=== PATIENT | female | born 1950 | race African-American/Black ===

== ENCOUNTER 2018-02-14 07:34 | Emergency (ER) | payer MEDICARE, OTHER ==
[2018-02-14 07:52] VITALS: TEMP 97.7; BMI 35.9
--- NOTE | 2018-02-14 08:12 | PDOC ---
History of Present Illness - General Chief Complaint: Cold Symptoms Stated Complaint: COUGH - History of Present Illness Initial Comments: The patient is a 67F who presents for evaluation for 1w of intermittently productive cough w/ clear sputum. She denies ever having a cough for this duration before. She has not tried taking anything for her symptoms. She denies associated fevers/chills, HERRERA, N/V/C/D, dysuria, hematuria, blood in her stool, or changes in sensation. 02/14/18 08:16 Past History - Past Medical History Allergies/Adverse Reactions: Allergies Allergy/AdvReac Type Severity Reaction Status Date / Time oxycodone HCl [From Percocet] Allergy Vomiting Verified 02/14/18 07:40 Home Medications: Ambulatory Orders Carvedilol Phosphate [Coreg Cr] 0 mg PO BID 06/14/13 Guaifenesin [Robitussin -] 200 mg PO Q4H #420 ml 02/14/18 Losartan Potassium 25 mg PO DAILY 02/14/18 Omeprazole 20 mg PO DAILY 02/14/18 COPD: No GI Disorders: Yes (GERD) HTN: Yes - Immunization History Immunization Up to Date: Yes - Suicide/Smoking/Psychosocial Hx Smoking Status: No Smoking History: Never smoked Number of Cigarettes Smoked Daily: 0 Hx Alcohol Use: No Drug/Substance Use Hx: No Review of Systems - Review of Systems Able to Perform ROS?: Yes Comments:: GENERAL/CONSTITUTIONAL: No fever or chills. No weakness HEAD, EYES, EARS, NOSE AND THROAT: No change in vision. No ear pain or discharge. No sore throat CARDIOVASCULAR: No chest pain or shortness of breath RESPIRATORY: Denies hemoptysis GASTROINTESTINAL: No nausea, vomiting, diarrhea or constipation GENITOURINARY: No dysuria, frequency, or change in urination MUSCULOSKELETAL: No joint or muscle swelling or pain. No neck or back pain SKIN: No rash NEUROLOGIC: No headache, vertigo, loss of consciousness, or change in strength/ sensation ENDOCRINE: No increased thirst. No abnormal weight change HEMATOLOGIC/LYMPHATIC: No anemia, easy bleeding, or history of blood clots ALLERGIC/IMMUNOLOGIC: No hives or skin allergy 02/14/18 08:09 *Physical Exam - Vital Signs Last Vital Signs Temp Pulse Resp BP Pulse Ox 97.7 F 67 18 149/57 L 100 02/14/18 07:40 02/14/18 07:40 02/14/18 07:40 02/14/18 07:40 02/14/18 07:40 - Physical Exam Comments: GENERAL: Awake, alert, and fully oriented, in no acute distress HEAD: No signs of trauma, normocephalic, atraumatic EYES: PERRLA, EOMI, sclera anicteric, conjunctiva clear ENT: Hearing grossly normal, nares patent, oropharynx clear without exudates. Moist mucosa LUNGS: No distress, speaks full sentences, clear to auscultation bilaterally HEART: Regular rate and rhythm, normal S1 and S2, no murmurs appreciated, peripheral pulses normal and equal bilaterally ABDOMEN: Soft, nontender, normoactive bowel sounds. No guarding, no rebound. No masses EXTREMITIES : Normal inspection, Normal range of motion, no edema. No clubbing or cyanosis NEUROLOGICAL: Cranial nerves II through XII grossly intact. Normal speech, normal gait, no focal sensorimotor deficits SKIN: Warm, Dry, normal turgor, no rashes or lesions noted 02/14/18 08:09 Moderate Sedation - Procedure Monitoring Vital Signs: Procedure Monitoring Vital Signs Temperature 97.7 F 02/14/18 07:40 Pulse Rate 67 02/14/18 07:40 Respiratory Rate 18 02/14/18 07:40 Blood Pressure 149/57 L 02/14/18 07:40 O2 Sat by Pulse Oximetry (%) 100 02/14/18 07:40 Medical Decision Making - Medical Decision Making The patient is a 67F w/ a history of HTN who presents for evaluation of 1w of cough w/ clear sputum w/o fevers/chill/myalgias. ED Course CXR to r/o PNA 02/14/18 08:10 CXR w/o evidence of PNA 02/14/18 10:25 Rx for Robitussen Plan for D/C w/ PCP f/u Discussed x-ray results and need for PCP f/u and eval Plan discussed with patient who is in agreement and verbalized understanding Return precautions and discharge instructions given Dispo: Home 02/14/18 13:43 *DC/Admit/Observation/Transfer Diagnosis at time of Disposition: Cough - Discharge Dispostion Disposition: HOME Condition at time of disposition: Stable Decision to Admit order: No - Prescriptions Prescriptions: Guaifenesin [Robitussin -] 200 mg PO Q4H #420 ml - Referrals Referrals: Bishop Fregoso MD [Primary Care Provider] - - Patient Instructions Printed Discharge Instructions: DI for Viral Upper Respiratory Infection -- Adult Additional Instructions: You were seen in the Emergency Department today for cough. Please review the handout provided at discharge. You X-ray was significant for some ill-defined densities in the right upper lobe of your lung. Follow up with your primary care provider regarding these findings. You may need a CT scan to further evaluate these. A prescription was sent to the pharmacy that you specified. Take as directed. Return to the Emergency Department if you develop fevers/ chills, vomiting, diarrhea, worsening symptoms, or new/concerning symptoms. - Post Discharge Activity
--- NOTE | 2018-02-14 09:07 | PDOC ---
Attending Attestation - Resident Resident Name: Sea Escalera - ED Attending Attestation I have performed the following: I have examined & evaluated the patient, The case was reviewed & discussed with the resident, I agree w/resident's findings & plan, Exceptions are as noted - HPI HPI: 02/14/18 08:53 67y F hx of htn, presents 1 week of intermmitten cough productive of whitish sputum. Pt endorses some subjective fever on saturday, but has since rsolved, pt also noted some intermittent nasal congestion. denies any myalgias, cp, sob, MERRILL. has not yet taken any medications for her symptoms. no recent travel, sick contacts, leg swelling, hemoptysis, cp. oropharynx clear lungs clear no leg edema, neg homans sign ddx: viral syndrome gibson lck ekg to screen for acs gibson ck cxr to r/o pna - Physicial Exam PE: 02/14/18 10:33 see ab ve - Medical Decision Making 02/14/18 10:33 EKG was sinus bradycardia, the patient's chest x-ray reveals several ill- defined masses in the right upper lung, inconsistent with pneumonia but we'll have the patient evaluated this as an outpatient by her PMD with further imaging. Was discussed with the patient. return precautions were discussed Heart Score/ECG Review - ECG Impressions Comment:: 02/14/18 10:33 Twelve-lead EKG was performed and reviewed by me. There is normal sinus rhythm with a rate of [address] depressions or elevations Impression sinus bradycardia
[2018-02-14 11:27] VITALS: BP 148/85; PULSE 64
--- NOTE | 2018-02-14 15:55 | EKG ---
Test Reason : Blood Pressure : / mmHG Vent. Rate : 055 BPM Atrial Rate : 055 BPM P-R Int : 192 ms QRS Dur : 100 ms QT Int : 434 ms P-R-T Axes : 052 040 046 degrees QTc Int : 415 ms SINUS BRADYCARDIA OTHERWISE NORMAL ECG WHEN COMPARED WITH ECG OF 28-DEC-2008 11:03, NO SIGNIFICANT CHANGE WAS FOUND Confirmed by KENDALL ALSTON MD ([id number]) on 02/14/2018 3:54:29 PM Referred By: Confirmed By:KENDALL ALSTON MD
== END 2018-02-14 11:27 | disposition home or self-care (01) ==
LOC: JER 07:34
DX: R05 Cough (principal)
CPT/HCPCS: 71046-TC-FY; 93005; 93010; 99282-25

== ENCOUNTER 2018-07-18 07:37 | Emergency (ER) | payer MEDICARE, OTHER ==
[2018-07-18 07:42] VITALS: BP 150/62; PULSE 62; TEMP 97.4; BMI 34.7
--- NOTE | 2018-07-18 08:01 | PDOC ---
History of Present Illness - General Chief Complaint: Ear Problem Stated Complaint: LEFT EAR PAIN Time Seen by Provider: 07/18/18 07:50 History Source: Patient Exam Limitations: No Limitations - History of Present Illness Initial Comments: 07/18/18 07:57 67-year-old female presents to ED with complaints of something stuck in her left ear after cleaning with a Q-tip. Patient denies pain dizziness or headache presently. Timing/Duration: 1 hour Severity: mild Associated Symptoms: reports: denies symptoms Past History - Travel Traveled outside of the country in the last 30 days: No - Past Medical History Allergies/Adverse Reactions: Allergies Allergy/AdvReac Type Severity Reaction Status Date / Time oxycodone HCl [From Percocet] Allergy Vomiting Verified 07/18/18 07:42 Home Medications: Ambulatory Orders Carvedilol Phosphate [Coreg Cr] 0 mg PO BID 06/14/13 Guaifenesin [Robitussin -] 200 mg PO Q4H #420 ml 02/14/18 Losartan Potassium 25 mg PO DAILY 02/14/18 Omeprazole 20 mg PO DAILY 02/14/18 COPD: No GI Disorders: Yes (GERD) HTN: Yes - Immunization History Immunization Up to Date: Yes - Suicide/Smoking/Psychosocial Hx Smoking Status: No Smoking History: Never smoked Number of Cigarettes Smoked Daily: 0 Information on smoking cessation initiated: No Hx Alcohol Use: No Drug/Substance Use Hx: No Patient Lives Alone: No Lives with/in: spouse/SO Review of Systems - Review of Systems Able to Perform ROS?: Yes Constitutional: No: Symptoms Reported HEENTM: Yes: Other (FB in ear) Integumentary: No: Symptoms Reported Neurological: No: Symptoms reported *Physical Exam - Vital Signs Last Vital Signs Temp Pulse Resp BP Pulse Ox 97.4 F L 62 17 150/62 99 07/18/18 07:39 07/18/18 07:39 07/18/18 07:39 07/18/18 07:39 07/18/18 07:39 - Physical Exam General Appearance: Yes: Nourished, Appropriately Dressed. No: Apparent Distress HEENT: positive: Other (noted white fibrous object occluding left ear canal) Integumentary: positive: Normal Color, Warm, Moist Neurologic: positive: Motor Strength 5/5 (ambulatory) Medical Decision Making - Medical Decision Making 07/18/18 07:59 Chief complaint: Something is stuck in my left ear after cleaning with a Q-tip Exam: Patient with noted white fibrous matter occluding left ear canal Plan: Utilizing alligator forceps I was able to remove foreign body without difficulty. It appears to be the end of the Q-tip. TM intact /patient has no complaints/ will discharge *DC/Admit/Observation/Transfer Diagnosis at time of Disposition: Foreign body in left ear - Discharge Dispostion Disposition: HOME Condition at time of disposition: Improved - Referrals Referrals: Bishop Fregoso MD [Primary Care Provider] - - Patient Instructions Printed Discharge Instructions: DI for Removal of Foreign Body From Ear Additional Instructions: Do not place anything in your ear which may get stuck - Post Discharge Activity
== END 2018-07-18 08:21 | disposition home or self-care (01) ==
LOC: JER 07:37
PROC: 09C47ZZ Extirpation of Matter from Left External Auditory Canal, Via Natural or Artificial Opening (ICD-10-PCS; principal; 2018-07-18)
DX: T16.2XXA Foreign body in left ear, initial encounter (principal); X58.XXXA Exposure to other specified factors, initial encounter; Y93.E8 Activity, other personal hygiene; Y92.038 Other place in apartment as the place of occurrence of the external cause; Y99.8 Other external cause status; I10 Essential (primary) hypertension; K21.9 Gastro-esophageal reflux disease without esophagitis
CPT/HCPCS: 69200; 99282-25

== ENCOUNTER 2018-09-06 12:24 | Emergency (ER) | payer OTHER ==
[2018-09-06 12:27] VITALS: BP 145/68; PULSE 63; TEMP 98.2; BMI 35.9
--- NOTE | 2018-09-06 12:48 | PDOC ---
History of Present Illness - General Chief Complaint: Oral Ulcers Stated Complaint: SORES IN MOUTH Time Seen by Provider: 09/06/18 12:42 History Source: Patient Exam Limitations: Clinical Condition - History of Present Illness Initial Comments: 09/06/18 12:57 Patient with history of hypertension and dental problem using dentures present with complaint of swelling around come of right lower teeth. Patient patient feels bench and has been cutting to her gums. Patient reports saw dentist over week ago for dentures and was told to stay off dentist fall while due to improper alignment or dentures but she Using it. Denies any other symptoms Timing/Duration: other (3 days) Past History - Past Medical History Allergies/Adverse Reactions: Allergies Allergy/AdvReac Type Severity Reaction Status Date / Time oxycodone HCl [From Percocet] Allergy Vomiting Verified 09/06/18 12:27 Home Medications: Ambulatory Orders Carvedilol Phosphate [Coreg Cr] 0 mg PO BID 06/14/13 Guaifenesin [Robitussin -] 200 mg PO Q4H #420 ml 02/14/18 Losartan Potassium 25 mg PO DAILY 02/14/18 Omeprazole 20 mg PO DAILY 02/14/18 Amox-Tr/K Cl [Augmentin - 875Mg Tablet] 1 tab PO BID #14 tablet 09/06/18 Mag Hydrox/Alh/Smc/Dpha/Lido [Magic Mouthwash *Sjr Formula* -] 5 ml MM Q6HPO 5 Days #1 mouthwash 09/06/18 COPD: No GI Disorders: Yes (GERD) HTN: Yes - Immunization History Immunization Up to Date: Yes - Suicide/Smoking/Psychosocial Hx Smoking Status: No Smoking History: Never smoked Number of Cigarettes Smoked Daily: 0 Hx Alcohol Use: No Drug/Substance Use Hx: No Review of Systems - Review of Systems Able to Perform ROS?: Yes Is the patient limited Danish proficient: No Constitutional: No: Chills, Fever HEENTM: Yes: Symptoms Reported, See HPI, Dental Problems. No: Eye Pain, Blurred Vision, Tearing, Recent change in vision, Double Vision, Cataracts, Ear Pain, Ocular Prothesis, Ear Discharge, Nose Pain, Nose Congestion, Tinnitus, Nose Bleeding, Hearing Loss, Throat Pain, Throat Swelling, Mouth Pain, Difficulty Swallowing, Mouth Swelling, Other Respiratory: No: Symptoms reported, See HPI, Cough, Orthopnea, Shortness of Breath, SOB with Exertion, SOB at Rest, Stridor, Wheezing, Productive cough, Hemoptysis, Other Cardiac (ROS): No: Symptoms Reported, See HPI, Chest Pain, Edema, Irregular Heart Rate, Lightheadedness, Palpitations, Syncope, Chest Tightness, Other ABD/GI: No: Nausea, Vomiting All Other Systems: Reviewed and Negative *Physical Exam - Vital Signs Last Vital Signs Temp Pulse Resp BP Pulse Ox 98.2 F 63 18 145/68 99 09/06/18 12:24 09/06/18 12:24 09/06/18 12:24 09/06/18 12:24 09/06/18 12:24 - Physical Exam Comments: 09/06/18 13:05 GENERAL: Well developed, well nourished. Awake and alert in mild acute distress. HEENT: Mild swelling with mild erythema around periodontal off right lower incisors. No abscess or drainage from site. Normocephalic, atraumatic. PERRLA, EOMI. No conjunctival pallor. Sclera are non-icteric. Moist mucous membranes. Oropharynx is clear. NECK: Supple. Full ROM. CARDIOVASCULAR: Regular rate and rhythm. No murmurs, rubs, or gallops. Distal pulses are 2+ and symmetric. PULMONARY: No evidence of respiratory distress. MUSCULOSKELETAL Normal range of motion at all joints. SKIN: Warm and dry. Normal capillary refill. No rashes. NEUROLOGICAL: Alert, awake, appropriate. Gait is normal without ataxia. PSYCHIATRIC: Cooperative. Good eye contact. Appropriate mood General Appearance: Yes: Nourished, Appropriately Dressed, Mild Distress Medical Decision Making - Medical Decision Making 09/06/18 12:59 Patient with history of hypertension and dental problem using dentures present with complaint of swelling around come of right lower teeth. Patient patient feels bench and has been cutting to her gums. Patient reports saw dentist over week ago for dentures and was told to stay off dentist fall while due to improper alignment or dentures but she Using it. Denies any other symptoms Exam significant for moderate swelling around right lower incisors with mild erythema to the gumline. No abscess or drainage from site. Otherwise normal exam. Patient is stable for discharge on Augmentin antibiotics and Magic mouthwash for pain with dental follow-up. *DC/Admit/Observation/Transfer Diagnosis at time of Disposition: Periodontitis - Discharge Dispostion Disposition: HOME Condition at time of disposition: Stable Decision to Admit order: No - Prescriptions Prescriptions: Amox-Tr/K Cl [Augmentin - 875Mg Tablet] 1 tab PO BID #14 tablet Mag Hydrox/Alh/Smc/Dpha/Lido [Magic Mouthwash *Sjr Formula* -] 5 ml MM Q6HPO 5 Days #1 mouthwash - Referrals Referrals: Bishop Fregoso MD [Primary Care Provider] - - Patient Instructions Printed Discharge Instructions: Periodontal Disease (Alternative Therapy), DI for Periodontitis Additional Instructions: Take medications as prescribed. Rinse mouth with medicated mouthwash as prescribed. Follow-up with dentist as discussed for re-evaluation - Post Discharge Activity
== END 2018-09-06 12:57 | disposition home or self-care (01) ==
LOC: JERFT 12:24
DX: K05.30 Chronic periodontitis, unspecified (principal); I10 Essential (primary) hypertension; K21.9 Gastro-esophageal reflux disease without esophagitis
CPT/HCPCS: 99281-25

== ENCOUNTER 2022-04-26 18:30 | Emergency (ER) | payer OTHER ==
[2022-04-26 18:59] VITALS: BP 164/73; PULSE 70; RESP 18; TEMP 98.3; BMI 30.1
== END 2022-04-26 19:45 | disposition home or self-care (01) ==
LOC: JER 18:30 → JERFT 18:30
DX: L60.0 Ingrowing nail (principal)
CPT/HCPCS: 99281-25

== ENCOUNTER 2022-07-07 18:20 | Emergency (ER) | payer OTHER ==
[2022-07-07] MEDS ORDERED: ACETAMINOPHEN 325 MG TABLET (FP) PO ONE (18:55)
[2022-07-07 18:58] VITALS: BP 161/77; PULSE 85; RESP 20; TEMP 98.8; BMI 34.4
[2022-07-07] MEDS ORDERED: ACETAMINOPHEN 325 MG TABLET (FP) ONE (18:58)
[2022-07-07 20:00] LABS: BASO % 0.2 % (0-2.0); EOS % 1.8 % (0-4.5); HEMATOCRIT 34.8 % (32.4-45.2); HEMOGLOBIN 12.2 GM/dL (10.7-15.3); MCH 31.1 pg (25.7-33.7); MCHC 35.2 g/dl (32.0-36.0); MEAN CELL VOLUME 88.4 fl (80-96); MEAN PLT VOLUME 8.9 fl (7.5-11.1); MONO % 11.9 % (3.8-10.2); NEUT % 47.1 % (42.8-82.8); PLATELET COUNT 185 10^3/uL (134-434); RBC 3.94 M/mm3 (3.60-5.2); RDW 14.3 % (11.6-15.6); WHITE BLOOD COUNT 5.7 K/mm3 (4.0-10.0)
[2022-07-07 20:07] LABS: INR 1.09 (0.83-1.09); PROTHROMBIN TIME (PATIENT) 12.6 SEC (9.7-13.0)
[2022-07-07 20:10] LABS: ACTIVATED PTT 26.6 SECONDS (25.2-36.5)
[2022-07-07 20:21] LABS: ALBUMIN 3.8 g/dl (3.4-5.0); BLOOD UREA NITROGEN 13.5 mg/dL (7-18)
[2022-07-07 20:22] LABS: CALCIUM 9.3 mg/dL (8.5-10.1)
[2022-07-07 20:25] LABS: CREATININE 0.9 mg/dL (0.55-1.3)
[2022-07-07 20:27] LABS: BILIRUBIN,TOTAL 0.3 mg/dL (0.2-1); TOT PROT 8.3 g/dl (6.4-8.2)
[2022-07-07] MEDS ORDERED: LIDOCAINE 5% TOPICAL PATCH TP ONE (21:23)
[2022-07-07] MEDS ORDERED: POTASSIUM CHLORIDE TABS 20 MEQ TABLET.ER (FP) PO ONE ×2 (21:30→23:39)
[2022-07-07] MEDS ORDERED: MAGNESIUM SULF 50% (8.12 MEQ/2 ML-1 GM VIAL) IVPB ONE (21:30)
[2022-07-07] MEDS ORDERED: KETOROLAC TROMETHAMINE 15 MG/ML VIAL IVPUSH ONE (21:32)
[2022-07-07] MEDS ORDERED: LIDOCAINE PATCH REMOVAL MC SCH (22:00)
[2022-07-07] MEDS ORDERED: KETOROLAC TROMETHAMINE 15 MG/ML VIAL ONE (22:07)
[2022-07-07] MEDS ORDERED: LIDOCAINE 5% TOPICAL PATCH ONE (22:07)
[2022-07-07] MEDS ORDERED: MAGNESIUM SULFATE IN WATER 2 GM/50 ML IVPB IVPB ONE (23:40)
== END 2022-07-08 00:18 | disposition home or self-care (01) ==
LOC: JER 18:20
PROC: 3E033GC Introduction of Other Therapeutic Substance into Peripheral Vein, Percutaneous Approach (ICD-10-PCS; principal; 2022-07-07)
PROC: 3E0333Z Introduction of Anti-inflammatory into Peripheral Vein, Percutaneous Approach (ICD-10-PCS; 2022-07-07)
DX: M94.0 Chondrocostal junction syndrome [Tietze] (principal); R07.9 Chest pain, unspecified; W01.0XXA Fall on same level from slipping, tripping and stumbling without subsequent striking against object, initial encounter
CPT/HCPCS: 36415; 70450-TC; 71045-TC-FY; 72125-TC; 72128-TC; 73562-TC-LT-FY; 73562-TC-RT-FY; 80053; 84484; 85025; 85610; 85730; 86850; 86900; 86901; 93005; 93010; 99285-25